=== PATIENT | female | born 1965 | race Caucasian/White ===

== ENCOUNTER → 2018-05-18 17:22 | Emergency (ER) | payer BC, OTHER ==
[~2018-05-18 17:22] MED LIST: Iohexol 300* (CONTRAST) 10 ML SDV IV ONE; NS 0.9% 1000 ML** 1,000 ML IV ONE; O ndansetron ODT 4MG 5TAB PRPK 4 MG PAK PO ONE; Ondansetron INJ* 2 MG/ML VIAL IV ONE; Ondansetron ODT TAB* 4 MG ONE
--- NOTE | 2018-05-18 18:17 | ED ---
GI/ HPI - HPI Summary HPI Summary: 52-year-old female presents with abdominal pain today. States that she had nausea since yesterday but no vomiting. She has a decreased appetite. No fevers. States she has history of IBS that the pain feels different. Pain is located on right lower quadrant and has been constant. She states the pain has not changed location. she denies any abnormal vaginal discharge. She initially had constipation but now has diarrhea. No blood in her stool. No urinary symptoms. No vaginal discharge. She has history of hysterectomy. Has no medical conditions. - History of Current Complaint Chief Complaint: EDAbdPain Time Seen by Provider: 05/18/18 17:54 Stated Complaint: ABD PAIN, NAUSEA Pain Intensity: 3 - Allergy/Home Medications Allergies/Adverse Reactions: Allergies Allergy/AdvReac Type Severity Reaction Status Date / Time No Known Allergies Allergy Verified 10/21/14 15:24 PMH/Surg Hx/FS Hx/Imm Hx Endocrine/Hematology History: Denies: Hx Diabetes Cardiovascular History: Reports: Hx Angina, Hx Hypercholesterolemia Denies: Hx Coronary Artery Disease, Hx Hypertension, Hx Myocardial Infarction , Hx Valvular Heart Disease Respiratory History: Denies: Hx Asthma, Hx Chronic Obstructive Pulmonary Disease (COPD) GI History: Reports: Hx Irritable Bowel, Other GI Disorders - frequent heartburn Musculoskeletal History: Reports: Hx Back Problems, Other Musculoskeletal History - spinal stenosis L3-L5 Sensory History: Reports: Hx Contacts or Glasses Opthamlomology History: Reports: Hx Contacts or Glasses - Surgical History Surgery Procedure, Year, and Place: [id number]. 1981,[place]. 1982 left knee [place] Hx Anesthesia Reactions: No Infectious Disease History: No Infectious Disease History: Denies: Traveled Outside the [place] in Last 30 Days - Family History Known Family History: Positive: Non-Contributory - Social History Alcohol Use: Rare Substance Use Type: Reports: None Smoking Status (MU): Former Smoker Review of Systems Negative: Fever Negative: Chest Pain Negative: Shortness Of Breath Positive: Abdominal Pain, Nausea. Negative: Vomiting, Diarrhea All Other Systems Reviewed And Are Negative: Yes Physical Exam Triage Information Reviewed: Yes Vital Signs On Initial Exam: Initial Vitals Temp Pulse Resp BP Pulse Ox 96.5 F 81 18 138/76 100 05/18/18 17:25 05/18/18 17:25 05/18/18 17:25 05/18/18 17:25 05/18/18 17:25 Vital Signs Reviewed: Yes Appearance: Positive: Well-Appearing Skin: Positive: Warm, Dry Head/Face: Positive: Normal Head/Face Inspection Eyes: Positive: Normal, EOMI, ISABELA, Conjunctiva Clear ENT: Positive: Normal ENT inspection, Pharynx normal, TMs normal Respiratory/Lung Sounds: Positive: Clear to Auscultation, Breath Sounds Present Cardiovascular: Positive: Normal, RRR Abdomen Description: Positive: Soft, Other: - tenderness in RLQ, no rebound Bowel Sounds: Positive: Present Musculoskeletal: Positive: Normal Neurological: Positive: Normal Psychiatric: Positive: Normal Diagnostics - Vital Signs Vital Signs Temp Pulse Resp BP Pulse Ox 05/18/18 17:25 96.5 F 81 18 138/76 100 - Laboratory Result Diagrams: 05/18/18 18:31 05/18/18 18:31 Lab Statement: Any lab studies that have been ordered have been reviewed, and results considered in the medical decision making process. - CT abd CT Interpretation Completed By: Radiologist Summary of CT Findings: IMPRESSION: 1. The appendix is unremarkable. 2. There is colonic diverticulosis without evidence for acute diverticulitis. Re-Evaluation - Re-Evaluation First Eval Re-Evaluation Time: 19:41 Change: Improved Comment: nausea improved, pain is in RLQ GIGU Course/Dx - Course Course Of Treatment: 52-year-old female presents with abdominal pain today. States that she had nausea since yesterday. She has a decreased appetite. No fevers. States she has history of IBS that the pain feels different. Pain is located on right lower quadrant and has been constant. She states the pain has not changed location. she denies any abnormal vaginal discharge. She initially had constipation but now has diarrhea. No blood in her stool. No urinary symptoms. No vaginal discharge. She has history of hysterectomy. Has no medical conditions. on exam has tenderness in RLQ. no rebound. wbc normal. crp elevated. urine no infection. CT abd normal. discussed results with patient and will send home with nausea medication. patient understand and agrees with plan. - Diagnoses Differential Diagnoses - Female: Appendicitis, Gastroenteritis (Viral), Urinary Tract Infection Provider Diagnoses: Abdominal pain, Nausea Discharge - Sign-Out/Discharge Documenting (check all that apply): Patient Departure Patient Received Moderate/Deep Sedation with Procedure: No - Discharge Plan Condition: Good Disposition: HOME Prescriptions: Ondansetron ODT TAB* [Zofran 4 MG Odt TAB*] 4 mg PO Q6H PRN #12 tab.odt PRN Reason: Nausea Patient Education Materials: Acute Abdominal Pain (ED) Referrals: Liliana COX,Alex Wilhelm [Primary Care Provider] - Additional Instructions: Can take Zofran every 6 hours as needed for nausea Drink small amounts of fluid as tolerated When able to eat follow BRAT diet: Bananas, rice, applesauce, toast Take ibuprofen or Tylenol for pain as needed every 6 hours Follow up with primary within 5 days Return to ED if develop any new or worsening symptoms - Billing Disposition and Condition Condition: GOOD Disposition: Home
[2018-05-18 18:41] LABS: ABS Basophils 0 10^3/ul (0-0.2); ABS Eosinophils 0.1 10^3/ul (0-0.6); ABS Lymphocytes 1.5 10^3/ul (1.0-4.8); ABS Monocytes 0.5 10^3/ul (0-0.8); ABS Neutrophils 5.6 10^3/ul (1.5-7.7); ABS Nucleated RBC 0 10^3/ul; Eosinophil % 1.2 %; Hematocrit 41 % (35-47); Lymphocyte % 19.2 %; Mean Corpuscular HGB Conc 34 g/dl (31-36); Mean Corpuscular Hemoglobin 32 pg (27-31); Mean Corpuscular Volume 93 fL (80-97); Mean Platelet Volume 7.6 fL (7.4-10.4); Nucleated Red Blood Cells % 0; Platelet Count 270 10^3/ul (150-450); Red Blood Count 4.44 10^6/ul (4.00-5.40); Red Cell Distribution Width 13 % (10.5-15); White Blood Count 7.7 10^3/ul (3.5-10.8)
[2018-05-18 18:59] LABS: Albumin 4.5 g/dL (3.2-5.2); Albumin/Globulin Ratio 1.7 (1-3); C Reactive Protein 21.73 mg/L (<8.01); Calcium 9.3 mg/dL (8.6-10.3); EGFR African American 94.5 (>60); EGFR Non-African American 78.1 (>60); Globulin 2.7 g/dL (2-4); Potassium 3.8 mmol/L (3.5-5.0); Total Bilirubin 0.5 mg/dL (0.2-1.0); Total Protein 7.2 g/dL (6.4-8.9)
[2018-05-18 20:11] LABS: Urine Appearance Clear; Urine Bilirubin Negative (Negative); Urine Blood Negative (Negative); Urine Color Straw; Urine Glucose Negative (Negative); Urine Ketones Negative (Negative); Urine Nitrite Negative (Negative); Urine Protein Negative (Negative); Urine Specific Gravity 1.002 (1.010-1.030); Urine Urobilinogen Negative (Negative)
[2018-05-18 21:06] VITALS: BP 120/61
== END | disposition home or self-care (01) ==
LOC: ED 17:22
DX: R10.9 Unspecified abdominal pain (principal); R11.0 Nausea; Z87.891 Personal history of nicotine dependence
CPT/HCPCS: 36415; 74177; 80053; 81003; 83605; 83690; 85025; 86140; 96361; 96374; 99284; A9270-GY; J2405; Q9967